=== PATIENT | female | born 1950 | race Caucasian/White ===

== ENCOUNTER → 2016-10-06 | Outpatient (CLI) | payer OTHER ==
[~2016-10-06] MED LIST: GADOBUTROL 10 ML VIAL IVP ONE
== END ==
LOC: FIMAGING 15:18
PROVIDERS: ATTEND Family Medicine
DX: R51 Headache (principal); J32.9 Chronic sinusitis, unspecified; H53.8 Other visual disturbances; R43.8 Other disturbances of smell and taste
CPT/HCPCS: 70553; A9585

== ENCOUNTER → 2016-12-09 | Outpatient (CLI) | payer OTHER | LOC: FIMAGING 12-06 09:43 | DX: M54.2 Cervicalgia (principal); M50.30 Other cervical disc degeneration, unspecified cervical region; M51.34 Other intervertebral disc degeneration, thoracic region ==

== ENCOUNTER 2018-06-04 06:00 | Observation (INO) | payer OTHER ==
[~2018-06-04 06:00] MED LIST changes: -GADOBUTROL 10 ML VIAL IVP ONE; +VANCOMYCIN 1.5 GM in NS 250 ML IV ONE; +VANCOMYCIN PHARMACY TO DOSE MISC ONE
--- NOTE | 2018-06-04 06:10 | PDHPUP ---
History & Physical Update H&P update statement: This history and physical update is based on an assessment of the patient which was completed after admission or registration (within 24 hours), but prior to the surgery/procedure. H&P update: H&P reviewed & patient examined, no change in patient's condition since H&P completed
[2018-06-04] MEDS ORDERED: FAMOTIDINE 20 MG TAB PO ONE (06:23)
[2018-06-04] MEDS ORDERED: ACETAMINOPHEN 325 MG TAB PO ONE (06:23)
[2018-06-04] MEDS ORDERED: DEXAMETHASONE 4 MG/ML VIAL IVP ONE (06:23)
[2018-06-04] MEDS ORDERED: LR 1,000 ML IV ONE (06:26)
[2018-06-04] MEDS ORDERED: BUPIVACAINE/EPI 0.5% 30 ML SDV ONE (06:36)
[2018-06-04] MEDS ORDERED: EPINEPHrine 1 MG/ML INJ ONE (07:13)
[2018-06-04] MEDS ORDERED: PROPOFOL 200 MG/20 ML VIAL ONE (07:19)
[2018-06-04] MEDS ORDERED: ONDANSETRON 4 MG/2 ML VIAL ONE (07:19)
[2018-06-04] MEDS ORDERED: LIDOCAINE 2% 5 ML SDV ONE (07:19)
[2018-06-04] MEDS ORDERED: fentaNYL 100 MCG/2 ML INJ ONE ×2 (07:19→09:12)
[2018-06-04] MEDS ORDERED: DEXAMETHASONE 4 MG/ML VIAL ONE (07:19)
[2018-06-04] MEDS ORDERED: LR 500 ML IV PRN (07:38)
[2018-06-04] MEDS ORDERED: PROMETHAZINE HCL 25 MG/ML INJ IVP PRN ×2 (07:38→13:40)
[2018-06-04] MEDS ORDERED: ONDANSETRON 4 MG/2 ML VIAL IVP PRN ×2 (07:38→13:40)
[2018-06-04] MEDS ORDERED: MEPERIDINE 25 MG/0.5 ML AMP IVP PRN (07:38)
[2018-06-04] MEDS ORDERED: NALOXONE HCL 0.4 MG/ML INJ IVP PRN (07:38)
[2018-06-04] MEDS ORDERED: PHENYLEPHRINE HCL 100 MCG/ML SYR IVP PRN (07:38)
[2018-06-04] MEDS ORDERED: METOCLOPRAMIDE 10 MG/2 ML VIAL IVP PRN ×2 (07:38→13:40)
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
[2018-06-04] MEDS ORDERED: SCOPOLAMINE HYDROBROMIDE 1 MG/3 DAYS PATCH TD SCH (07:45)
[2018-06-04] MEDS: fentaNYL 100 MCG/2 ML INJ IVP PRN ×2 (09:15→09:25)
[2018-06-04] MEDS ORDERED: HYDROmorphONE/DILAUDID 2 MG/ML INJ ONE (09:38)
--- NOTE | 2018-06-04 09:40 | POSTANESTH ---
Post Anesthetic Evaluation Cardiovascular Status: Normal, Stable Respiratory Status: Normal, Stable Level of Consciousness/Mental Status: Can Participate in Eval Pain Control: Inadeq, Add Tx Required Nausea/Vomiting Control: Adequate, Prn Tx Ordered Complications Possibly Related to Anesthesia: None Noted
[2018-06-04] MEDS: HYDROmorphONE/DILAUDID 2 MG/ML INJ IVP PRN ×4 (09:41→10:32)
[2018-06-04] MEDS ORDERED: oxyCODONE IR 5 MG TAB ONE ×3 (09:57→14:03)
[2018-06-04] MEDS ORDERED: oxyCODONE IR 5 MG TAB PO ONE (10:02)
[2018-06-04] MEDS ORDERED: KETOROLAC 30 MG/1 ML SDV IVP ONE (10:04)
[2018-06-04] MEDS ORDERED: KETOROLAC 15 MG/1 ML SDV ONE (10:06)
[2018-06-04] MEDS ORDERED: KETOROLAC 30 MG/1 ML SDV ONE (10:06)
[2018-06-04] MEDS ORDERED: ROPIVACAINE HCL 150 MG/30 ML INJ ONE (11:54)
--- NOTE | 2018-06-04 12:30 | POSTOPPROG ---
Post Op Note Date of Operation: 06/04/18 Surgeon: Toby Mendoza Yardage Control Clerk: christian mendoza PA-C Anesthesiologist: dr. maier Anesthesia: GET(General Endotracheal), Other (Specify) (adductor canal block) Pre-op Diagnosis: right knee ankylosis Post-op Diagnosis: same Indication: right knee pain Procedure: right knee arthroscopy Findings: synovial hypertrophy, PLICA, partial knee arthroplasty in good position Inf/Abcess present in the surg proc area at time of surgery?: No EBL: Minimal
[2018-06-04] MEDS ORDERED: CYCLOBENZAPRINE 10 MG TAB PO PRN (13:40)
[2018-06-04] MEDS ORDERED: POLYETHYLENE GLYCOL 3350 17 GM PKT PO PRN (13:40)
[2018-06-04] MEDS ORDERED: BISACODYL 10 MG SUPP PR PRN (13:40)
[2018-06-04] MEDS ORDERED: MAGNESIUM HYDROXIDE 30 ML UDCUP PO PRN (13:40)
[2018-06-04] MEDS ORDERED: diphenhydrAMINE 25 MG CAP PO PRN (13:40)
[2018-06-04] MEDS ORDERED: DIPHENOXYLATE/ATROPINE LOMOTIL 1 TAB PO PRN (13:40)
[2018-06-04] MEDS ORDERED: ONDANSETRON DISINTEGRATING 4 MG TAB PO PRN (13:40)
[2018-06-04] MEDS ORDERED: PROMETHAZINE HCL 25 MG SUPPR PR PRN (13:40)
[2018-06-04] MEDS ORDERED: TEMAZEPAM 15 MG CAP PO PRN (13:40)
[2018-06-04] MEDS ORDERED: LACTULOSE 20 GM/30 ML UDCUP PO PRN (13:40)
[2018-06-04] MEDS: oxyCODONE IR 5 MG TAB PO PRN ×3 (13:45→19:59)
[2018-06-04] MEDS ORDERED: LR 1,000 ML IV SCH (14:00)
[2018-06-04] MEDS: ACETAMINOPHEN 325 MG TAB PO SCH (18:22)
[2018-06-04] MEDS: FAMOTIDINE 20 MG TAB PO SCH (20:00)
[2018-06-04] MEDS: ASPIRIN 81 MG CHEWABLE TAB PO SCH (20:00)
[2018-06-04] MEDS: SENNOSIDES/DOCUSATE SODIUM TAB PO SCH (20:00)
[2018-06-05] MEDS: ACETAMINOPHEN 325 MG TAB PO SCH ×3 (05:45→12:48)
[2018-06-05 07:48] VITALS: BP 115/64
[2018-06-05] MEDS: SENNOSIDES/DOCUSATE SODIUM TAB PO SCH (08:49)
[2018-06-05] MEDS: FAMOTIDINE 20 MG TAB PO SCH (08:50)
[2018-06-05] MEDS: ASPIRIN 81 MG CHEWABLE TAB PO SCH (08:50)
[2018-06-05] MEDS ORDERED: HYDROCHLOROTHIAZIDE 12.5 MG CAP PO SCH (09:00)
[2018-06-05] MEDS ORDERED: TELMISARTAN 40 MG TAB PO SCH (09:00)
[2018-06-05] MEDS: oxyCODONE IR 5 MG TAB PO PRN ×2 (09:44→12:47)
--- NOTE | 2018-06-05 12:35 | ASDISCHSUM ---
Discharge Information Plan Status:Home with No Needs Medically Cleared to Leave:06/04/2018 Discharge Date:06/04/2018 CM D/C Disposition:Home, Routine, Self-Care ADT D/C Disposition:Home, Routine, Self-Care Projected Discharge Date:06/04/2018 Transportation at D/C:Family Discharge Delay Reason: Follow-Up Date:06/04/2018 Discharge Slot:1 - 8:01 am - 12:00 noon Final Diagnosis:Right knee arthroscopy Placement Information Patient Contact Information Contact Name:ROMELIA Relationship: [address] [place] Phone: City:[place] Alternate Phone: [facility]/Zip Code:[place] [address] Email: Financial Information Financial Class:Medicare Primary Plan Desc:MEDICARE OUTPATIENT Primary Plan Number:[id number] Secondary Plan Desc:[facility] Secondary Plan Number:[id number] Assessment Information LACE LACE Length of stay for Answers: Less than 1 day current admission Acuity / Level of Answers: No Care: Did the patient have an inpatient admission? Comorbidities - select Answers: Any tumor (including all that apply lymphoma or leukemia) # of Emergency department Answers: 0 visits in the last 6 months Score: 2 Date Signed: 06/05/2018 11:03 AM Electronically Signed By:Mikaela Badillo RN [facility] Progress Note CM Note CM Note Notes: Reviewed chart. Pt admitted for a planned right knee arthroscopy. History includes breast cancer. Pt to discharge home independently with family support no identified needs. No IM/MULLER forms signed pt admission less than 24 hrs. Pt to follow up as directed. CM available for any further issues or concerns. Discharge Plan: Home independently with family support Date Signed: 06/05/2018 11:07 AM Electronically Signed By:Mikaela Badillo RN Intervention Information
--- NOTE | 2018-06-05 12:39 | ASMTCMCOM ---
CM Note CM Note Notes: Reviewed chart. Pt admitted for a planned right knee arthroscopy. History includes breast cancer. Pt to discharge home independently with family support no identified needs. No IM/MULLER forms signed pt admission less than 24 hrs. Pt to follow up as directed. CM available for any further issues or concerns. Discharge Plan: Home independently with family support Date Signed: 06/05/2018 11:07 AM Electronically Signed By:Mikaela Badillo RN
--- NOTE | 2018-06-05 12:39 | ASMTLACE ---
LACE Length of stay for Answers: Less than 1 day current admission Acuity / Level of Answers: No Care: Did the patient have an inpatient admission? Comorbidities - select Answers: Any tumor (including all that apply lymphoma or leukemia) # of Emergency department Answers: 0 visits in the last 6 months Score: 2 Date Signed: 06/05/2018 11:03 AM Electronically Signed By:Mikaela Badillo RN
--- NOTE | 2018-06-05 21:41 | SOAPPROG ---
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 Instructed patient that the nerve block will wear off this evening VTE ppx: recommend aspirin 81 mg BID D/c planning: patient may discharge to home today, recommend she return in 2 weeks for follow up with Dr. Zhang. Earlier if she will be out of town due to traveling. Plan: 06/05/18 21:38 Subjective: pain control has improved, denies CP, SOB Objective: Vital Signs Temp Pulse Resp BP Pulse Ox 36.7 C 61 14 115/64 91 L 06/05/18 07:46 06/05/18 07:46 06/05/18 07:46 06/05/18 08:51 06/05/18 07:46 Laboratory Results 06/05/18 04:14 06/04/18 07:00 06/04/18 06/05/18 06/06/18 05:59 05:59 05:59 Intake Total 2600 Output Total 1260 1500 Balance 1340 -1500 RLE: incision dressing is clean and dry, NVI, +pf/df ICD10 Worksheet Patient Problems: Problems Problem Status Onset Osteoarthritis of knee Active Ankylosis, right knee Acute
--- NOTE | 2018-06-07 00:35 | GOP ---
DATE OF OPERATION: 06/04/2018 SURGEON: Bianca Zhang MD ANESTHESIA: General. PREOPERATIVE DIAGNOSIS: Right knee adhesions. POSTOPERATIVE DIAGNOSIS: Right knee adhesions, patellofemoral osteoarthritis, lateral meniscus tear. PROCEDURE PERFORMED: 1. Right knee arthroscopic lysis of adhesions. 2. Patellofemoral chondroplasty. 3. Partial lateral meniscectomy, 20%. 4. Subtotal synovectomy. FINDINGS: INDICATIONS: The patient is a 68-year-old female who underwent a right medial compartment partial knee replacement 3 or 4 years ago. Developed pain that seemed to be scar tissue on the right knee. Discussion was had with the patient regarding risks and benefits, and the patient elected to proceed with operative intervention. No guarantees were given. DESCRIPTION OF PROCEDURE: The patient identified in the preoperative holding area. Her lower extremity was marked. She was then brought back to the operating room. After induction of anesthesia, a nonsterile tourniquet was placed around her upper thigh. She was then prepped and draped in the usual sterile fashion. A time-out was taken confirming patient and laterally of the procedure, allergies, and antibiotic status. I then proceeded to make 2 parapatellar portals. Diagnostic arthroscopy was performed. There were no loose bodies in the suprapatellar pouch, although there was extensive synovitis. On the medial aspect of the joint, there did appear to be some synovium that was hypertrophied, and this appeared an area that was possibly causing her pain. There was also a plica that was quite prominent. In the medial compartment, the partial knee replacement was in good condition, minimal wear. There was a shelf of scar tissue that had formed. The notch was in good condition. Lateral compartment showed a tear of the posterior portion of the lateral meniscus with frayed degeneration of fragments into the joint. The patellofemoral joint showed some cartilage fibrillations. We then proceeded to do a subtotal synovectomy. We removed the adhesions and scar tissue and hypertrophic tissue. We then removed the scar tissue that had formed in the medial compartment over the implant. The lateral meniscus tear was reamed back to a stable brim, and a patellofemoral chondroplasty was then performed. The patient was then awakened and brought to PACU in good condition with a well-perfusing limb. The plan is for the patient to be weightbearing as tolerated. /[id number]/MODL MTDD
== END 2018-06-05 12:53 | disposition home or self-care (01) ==
LOC: FSGY 06:00 → F3E 13:40 → F3N 14:41
PROVIDERS: ADMIT Orthopaedic Surgery; ATTEND Orthopaedic Surgery
DX: M24.661 Ankylosis, right knee (principal); Z96.651 Presence of right artificial knee joint
CPT/HCPCS: 29875; 29881; 73560; 97110; 97116; 97161; G8978; G8979; G8980; J0171; J1100; J1170; J1885; J2405; J2704; J2795; J3010; J3370

== ENCOUNTER 2018-08-25 10:03 | Inpatient (IN) | payer OTHER ==
--- NOTE | 2018-08-25 10:22 | EDPHY ---
H & P Stated Complaint: l flank pain x 3 days microscopic hematuria n/v Time Seen by Provider: 08/25/18 10:18 HPI/ROS: CHIEF COMPLAINT: Left flank pain, vomiting HISTORY OF PRESENT ILLNESS: The patient presents the ED with complaints of severe left flank pain and vomiting. The patient had mild symptoms over the past 2 days. They worsened this morning. She was seen by her primary care provider who performed a urinalysis which demonstrated blood without evidence of an infection. She was sent to the ED for further workup. The patient denies prior history of nephrolithiasis or ureterolithiasis. She denies any antecedent dysuria or fever. She denies any acute neurologic symptoms. She reports her pain is a 10/10. REVIEW OF SYSTEMS: A comprehensive 10 point review of systems is otherwise negative aside from elements mentioned in the history of present illness. Source: Patient Exam Limitations: No limitations - Personal History Current Tetanus Diphtheria and Acellular Pertussis (TDAP): Unsure Tetanus Vaccine Date: < 10 YEARS AGO - Medical/Surgical History Hx Asthma: No Hx Chronic Respiratory Disease: No Hx Diabetes: No Hx Cardiac Disease: No Hx Renal Disease: No Hx Cirrhosis: No Hx Alcoholism: No Hx HIV/AIDS: No Hx Splenectomy or Spleen Trauma: No Other PMH: knee scope - Social History Smoking Status: Never smoked - Physical Exam Exam: General Appearance: Alert, uncomfortable, writhing in pain Eyes: Pupils equal and round no pallor or injection ENT, Mouth: Mucous membranes moist Respiratory: There are no retractions, lungs are clear to auscultation Cardiovascular: Regular rate and rhythm Gastrointestinal: Abdomen is soft and nontender, no masses, bowel sounds normal Back: Left CVA tenderness Neurological: 5/5 strength noted all 4 extremities Skin: Warm and dry, no rashes Musculoskeletal: Neck is supple nontender Extremities: symmetrical, full range of motion Constitutional: Initial Vital Signs Temperature (C) 36.5 C 08/25/18 10:15 Heart Rate 63 08/25/18 10:15 Respiratory Rate 18 08/25/18 10:15 Blood Pressure 215/110 H 08/25/18 10:15 O2 Sat (%) 92 08/25/18 10:15 O2 Delivery Mode Room Air Allergies/Adverse Reactions: moxifloxacin Allergy (Severe, Verified 12/21/12 11:47) Anaphylaxis Penicillins Allergy (Intermediate, Verified 12/21/12 11:47) Hives Sulfa (Sulfonamide Antibiotics) Allergy (Mild, Verified 12/21/12 11:47) GI UPSET diazepam [From Valium] Allergy (Verified 06/03/18 11:56) DECREASED RESPIRATIONS/DIFFICULTY WAKING UP morphine Allergy (Verified 06/03/18 11:56) VERY SEDATION/DECREASES RESPIRATION АННА Allergy (Uncoded 12/06/13 16:10) Home Medications: Medication Instructions Recorded Acetaminophen [Tylenol ES 500 mg 500 mg PO Q6 PRN 08/25/18 (*)] Naproxen Sodium [Aleve 220 MG (*)] 220 mg PO BID 08/25/18 Medical Decision Making - Diagnostics Imaging Results: CT Abdomen and Pelvis Findings: Kidneys, ureters, and bladder: There is moderate left-sided hydronephrosis with dilatation of the left ureter down to the pelvis where there is a distal left ureteral calculus measuring 5 x 4 mm transversely by 6 mm longitudinally about 1.5 cm above the UVJ. No additional ureteral calculi are seen on either side. There is also a 2 mm nonobstructive calculus mid left kidney and 1 mm nonobstructive calculus mid right kidney. No significant renal masses. Perinephric stranding is seen around the left kidney as well as around the distal left ureter at the level of the calculus. The bladder is not well distended. No obvious focal abnormality seen. Lung bases: There is some interstitial dependent edema at the lung bases posteriorly. Liver: Normal. Spleen: Normal. Gallbladder and Bile Ducts: Normal. Pancreas: Normal. Adrenals: Normal. Abdominal Aorta: No aneurysm. Pelvic structures: Normal. Appendix: Normal. Bowel Loops: There are no significantly dilated loops of bowel. Mild hiatal hernia is noted. Soft tissues: Within the lower outer quadrant left breast centrally there is a 3 x 2 cm oval density that could represent a cyst versus solid mass. The soft tissues are otherwise unremarkable over the abdomen and pelvis. Skeletal system: Vertebral body heights are well-maintained. There are no lytic or sclerotic osseous lesions. Moderate to marked degenerative disk disease is noted at L1-L2 and at L5-S1. Impression: 1. Moderate left-sided hydronephrosis secondary to a distal left ureteral calculus measuring 4 x 5 x 6 mm about 1.5 cm above the UVJ.. 2. Tiny nonobstructive calculus midportion of each kidney. 3. Mild hiatal hernia. 4. Oval density lower outer quadrant left breast centrally. This could represent a cyst versus solid mass. Consider correlation with diagnostic mammography and ultrasound as clinically directed. ED Course/Re-evaluation: The patient presents the ED with complaints of acute severe left flank pain. The patient has no prior history of the symptoms. Patient had an IV established. She received IV Dilaudid. After a normal creatinine was verified she received IV Toradol. The patient was taken for CT scan of the abdomen pelvis which demonstrates obstructive uropathy secondary to a distal left ureteral stone. The patient received IV fluid rehydration and antiemetics emergency department. She also received oral Flomax. Patient was re-evaluated [address] scan and continues to have ongoing severe pain. She will require admission to the hospital for pain management and possible urologic consultation. Consultation is made with the hospitalist service. The patient will be admitted by Dr. Holland. Differential Diagnosis: Differential diagnosis considered includes pyelonephritis, nephrolithiasis, abdominal aortic aneurysm, myofascial strain, myocardial infarction - Data Points Laboratory Results: Laboratory Results 08/25/18 10:30 08/25/18 10:30 08/25/18 11:20 Urine Color YELLOW Urine Appearance MODERATELY TURBID Urine pH 7.0 (5.0-7.5) Ur Specific [place] 1.017 (1.002-1.030) Urine Protein NEGATIVE (NEGATIVE) Urine Ketones TRACE H (NEGATIVE) Urine Blood 1+ H (NEGATIVE) Urine Nitrate NEGATIVE (NEGATIVE) Urine Bilirubin NEGATIVE (NEGATIVE) Urine Urobilinogen 0.2 EU EU (0.2-1.0) Ur Leukocyte Esterase NEGATIVE (NEGATIVE) Urine RBC 25-50 /hpf H /hpf (0-3) Urine WBC 1-3 /hpf /hpf (0-3) Ur Epithelial Cells TRACE /lpf /lpf (NONE-1+) Amorphous Sediment PRESENT /hpf /hpf (NONE-1+) Urine Bacteria TRACE /hpf H /hpf (NONE SEEN) Urine Mucus TRACE /lpf /lpf (NONE-1+) Urine Glucose NEGATIVE (NEGATIVE) Medications Given: Acetaminophen (Tylenol) 1,000 mg PO Q8H PRN PRN Reason: Pain, Mild/Fever, Can Take PO Stop: 02/21/19 13:14 Last Admin: 08/26/18 04:28 Dose: 1,000 mg Calcium Carbonate (Tums) 500 mg PO TID PRN PRN Reason: Indigestion Stop: 02/22/19 00:54 Last Admin: 08/26/18 01:21 Dose: 500 mg Sodium Chloride (Ns) 1,000 mls @ 100 mls/hr IV CONT LOVE Stop: 02/21/19 13:14 Last Admin: 08/26/18 05:43 Dose: 1,000 mls Miscellaneous Information (Patch Removal) 1 ea TD DAILY21 LOVE Stop: 02/21/19 20:59 Last Admin: 08/26/18 00:56 Dose: Not Given Oxycodone HCl (Oxycodone Ir) 5 - 10 mg PO Q3H PRN PRN Reason: Pain, Moderate Able to Take PO Stop: 09/04/18 13:14 Last Admin: 08/26/18 04:28 Dose: 5 mg Discontinued Medications Ketorolac Tromethamine (Toradol) 30 mg IVP EDNOW ONE Stop: 08/25/18 10:41 Last Admin: 08/25/18 10:45 Dose: 30 mg Point of Care Test Results: Chemistry 08/25/18 10:36 POC Sodium 143 mEq/L mEq/L (135-145) POC Potassium 3.3 mEq/L mEq/L (3.3-5.0) POC Chloride 105 mEq/L mEq/L (97-110) POC Total CO2 24 mEq/L mEq/L (22-31) POC BUN 18 mg/dL mg/dL (7-23) POC Creatinine 1.1 mg/dL H mg/dL (0.6-1.0) POC Glucose 121 mg/dL H mg/dL (70-100) ISTAT H&H 08/25/18 10:36 POC Hgb 14.6 gm/dL gm/dL (12.6-16.3) POC Hct 43 % % (38-47) Departure - Departure Disposition: [facility] Acute Clinical Impression: Kidney stone on left side Condition: Fair
[2018-08-25] MEDS ORDERED: KETOROLAC 30 MG/1 ML SDV IVP ONE (10:40)
[2018-08-25 10:46] LABS: PLATELET COUNT 254 10^3/uL (150-400)
[2018-08-25] MEDS ORDERED: HYDROCODONE/APAP 5/325 TAB ONE ×2 (11:23→11:27)
[2018-08-25] MEDS ORDERED: TAMSULOSIN HCL 0.4 MG CAP PO ONE (11:23)
[2018-08-25] MEDS ORDERED: ONDANSETRON 4 MG/2 ML VIAL IVP PRN (13:15)
[2018-08-25] MEDS ORDERED: HYDROmorphONE/DILAUDID 2 MG/ML INJ IVP PRN (13:15)
[2018-08-25] MEDS ORDERED: ONDANSETRON DISINTEGRATING 4 MG TAB PO PRN (13:15)
[2018-08-25] MEDS: oxyCODONE IR 5 MG TAB PO PRN ×3 (13:45→21:08)
[2018-08-25] MEDS: ACETAMINOPHEN 500 MG TAB PO PRN (16:00)
[2018-08-25] MEDS ORDERED: oxyCODONE IR 5 MG TAB ONE (16:55)
[2018-08-25] MEDS: NS 1,000 ML IV SCH (21:09)
[2018-08-26] MEDS ORDERED: CALCIUM CARBONATE 500 MG CHEWABLE TAB PO PRN (00:55)
[2018-08-26] MEDS: PATCH REMOVAL 1 EA PATCH TD SCH ×2 (00:56→19:58)
[2018-08-26] MEDS: ACETAMINOPHEN 500 MG TAB PO PRN ×3 (04:28→20:06)
[2018-08-26] MEDS: oxyCODONE IR 5 MG TAB PO PRN (04:28)
[2018-08-26 05:27] LABS: PLATELET COUNT 208 10^3/uL (150-400)
[2018-08-26] MEDS: NS 1,000 ML IV SCH (05:43)
[2018-08-26] MEDS ORDERED: TAMSULOSIN HCL 0.4 MG CAP PO SCH (09:00)
[2018-08-26] MEDS ORDERED: LIDOCAINE 4%/MENTHOL 1% PATCH TD SCH (09:00)
[2018-08-26] MEDS: TAMSULOSIN HCL 0.4 MG CAP PO SCH (09:18)
--- NOTE | 2018-08-26 09:24 | ASMTCMCOM ---
CM Note CM Note Notes: Chart reviewed for discharge planning purposes. 68 year old female admitted via ED with c/o flank pain with @ Nausea and vomiting. Normally independent with . CM to follow for needs. Likely no needs at discharge. Plan: TBD Date Signed: 08/26/2018 09:24 AM Electronically Signed By:Francy Lyles RN
[2018-08-26] MEDS ORDERED: LR 1,000 ML IV ONE (15:20)
--- NOTE | 2018-08-26 16:02 | PDCONSULT ---
Special Agent Note: CC left distal ureteral stone HPI 68F presented to ER last night with Left flank pain. CT scan personally reviewed - left distal ureteral stone, 6mm associated hydro, associated perinepheric stranding. NO fevers or chills. Very sensitive to anesthesia and valium w desaturations. ROS 10 pt RoS performed, as stated in HPI, otherwise neg. PMH/PSH/FH/SH reviewd, no contributory GE AFVSS Gen NAD A&O CV regular Lungs Normal effort Abd soft Ext warm CVA Yes R flank tenderness on exam Labs: Cr 1.4 UA +RBCs. A/P Left ureteral stone, associated hydro and stranding. Left URS, laser, stent. Discussed possibility of inability to treat stone, inability to place stent, and need for PCNT and subsequent procedures. She and her understand and agree to proceed. Consent received.
[2018-08-26] MEDS ORDERED: TRIMETHOPRIM IV ONE (16:30)
[2018-08-26] MEDS ORDERED: SULFAMETHOXAZOLE IV ONE (16:30)
--- NOTE | 2018-08-26 16:49 | HOSPPROG ---
Hospitalist Progress Note Assessment/Plan: # L ureterolithiasis - plan for ureteroscopy today by Dr Dunbar # L breast density on CT - will need mammogram, likely outpatient # ZO - will hydrate overnight and recheck SCr in am; unclear if pre or post- renal Subjective: still with ongoing L sided pain although it is better than before Objective: Vital Signs Temp Pulse Resp BP Pulse Ox 37 C 79 91 H 189/107 H 96 08/26/18 15:46 08/26/18 15:46 08/26/18 15:46 08/26/18 15:46 08/26/18 08:00 Laboratory Results 08/26/18 05:12 08/26/18 05:12 08/25/18 08/26/18 08/27/18 05:59 05:59 05:59 Intake Total 3100 Output Total 1400 1650 Balance 1700 -1650 chart reviewed discussed with Dr Dunbar CT reviewed - Physical Exam Constitutional: no apparent distress, appears nourished Cardiovascular: regular rate and rhythym, no murmur, rub, or gallop Respiratory: no respiratory distress, no rales or rhonchi, clear to auscultation Gastrointestinal: other (soft, mild LLQ TTP; ), No guarding, No rebound ICD10 Worksheet Patient Problems: Problems Problem Status Onset Kidney stone on left side Acute Ankylosis, right knee Acute Osteoarthritis of knee Active
--- NOTE | 2018-08-26 17:18 | PDMN ---
Medical Necessity Medical necessity: Change to IP, as of 08/26/18, per MD & MCG M-320; los >2 mn for ongoing management of L ureterolithiasis w/acute kidney injury; requiring further monitoring, ureteroscopy, IVFs & pain management
[2018-08-26] MEDS ORDERED: LIDOCAINE 2% JELLY 20 ML (UROJECT) ONE (17:55)
[2018-08-26] MEDS ORDERED: IOPAMIDOL (ISOVUE-M 300) 15 ML VIAL ONE (17:56)
[2018-08-26] MEDS ORDERED: OPIUM/BELLADONNA ALKALO SUPP PR ONE (17:56)
[2018-08-26] MEDS ORDERED: fentaNYL 250 MCG/5 ML INJ ONE (17:58)
[2018-08-26] MEDS ORDERED: LABETALOL HCL 5 MG/ML 20 ML MDV ONE (17:58)
[2018-08-26] MEDS ORDERED: PROPOFOL/EMULSION 500 MG/50 ML BOTTLE IV ONE (17:59)
[2018-08-26] MEDS: LABETALOL HCL 5 MG/ML 20 ML MDV IVP PRN ×2 (18:10→18:16)
--- NOTE | 2018-08-26 18:46 | POSTOPPROG ---
Post Op Note Date of Operation: 08/26/18 Surgeon: Rebeca Dunbar Anesthesiologist: Buddy Anesthesia: LMA Pre-op Diagnosis: left ureteral stone, hydronephrosis, hypertension Post-op Diagnosis: same Indication: left ureteral stone, hydronephrosis, hypertension Procedure: cysto, L ureteral stent, intraop fluoro Findings: left ureteral stone Inf/Abcess present in the surg proc area at time of surgery?: No EBL: Minimal Complications: none, pt tolerated procedure well
[2018-08-26] MEDS ORDERED: PHENAZOPYRIDINE HCL 100 MG TAB PO PRN (19:00)
[2018-08-27] MEDS: oxyCODONE IR 5 MG TAB PO PRN (03:34)
[2018-08-27] MEDS: ACETAMINOPHEN 500 MG TAB PO PRN (04:28)
[2018-08-27 05:43] LABS: PLATELET COUNT 207 10^3/uL (150-400)
--- NOTE | 2018-08-27 07:49 | SOAPPROG ---
SOAP Progress Note Assessment/Plan: Assessment: s/p L Ureteral stent for L ureteral stone. HTN I discussed that her HTN is not associated with the stone or procedure yesterday. Plan: She will need BP well controlled prior to her next OR visit to treat the stone. Will need to see PCP for clearance for surgery and see me in my office prior to her surgery. Otherwise OK for DC from urology standpoint. 08/27/18 07:46 Subjective: NAEON BP remains high. Denies any discomfort with the stent or left flank. Objective: Vital Signs Temp Pulse Resp BP Pulse Ox 36.4 C 68 18 173/105 H 92 08/27/18 07:30 08/27/18 07:30 08/27/18 07:30 08/27/18 07:30 08/27/18 07:30 Laboratory Results 08/27/18 04:30 08/27/18 04:30 08/26/18 08/27/18 08/28/18 05:59 05:59 05:59 Intake Total 2120 Output Total 1200 500 Balance 920 -500 Gen NAD A*O CV regular Lungs normal effort Abd soft Ext warm ICD10 Worksheet Patient Problems: Problems Problem Status Onset Kidney stone on left side Acute Osteoarthritis of knee Active Ankylosis, right knee Acute
[2018-08-27] MEDS: TAMSULOSIN HCL 0.4 MG CAP PO SCH (07:52)
[2018-08-27] MEDS ORDERED: amLODIPine BESYLATE 5 MG TAB PO SCH (09:00)
--- NOTE | 2018-08-27 10:58 | GDS ---
[f rep st] DISCHARGE SUMMARY DIAGNOSES: 1. Renal stone status post stent placement. 2. Uncontrolled hypertension. 3. Left breast density seen on CT scan. 4. Acute kidney injury. HOSPITAL COURSE: This is a 68-year-old female presented with left flank pain. Imaging showed a left distal ureteral lithiasis. This did not pass with conservative measures. She was seen by Dr. Fito montgomery who performed a ureteroscopy. She was unable to perform stone extraction given her uncontrolled hypertension. However, a stent was placed. She will need to have the stone definitively managed whe n her blood pressure is better controlled. I have started her on amlodipine 5 mg daily. Her last bl ood pressure was 169/97. She has a followup appointment with her PCP 3 days after discharge. She ma y need to have her amlodipine adjusted at that point. She had previously been on antihypertensives, however, has been off for some time now. Additionally, she had a minor acute kidney injury. Her cre atinine peaked at 1.4, it is down to 1.0 on the day of discharge. She had a left breast density seen on CT scan. She does have a history of breast cancer, I am unsure of the significance of this. Meme s will need to be followed up as an outpatient. She is aware of this. BILLING: I spent more than 30 minutes on the day of discharge coordinating care. /[id number]/MODL
[2018-08-27 11:08] VITALS: BP 169/93
--- NOTE | 2018-08-27 11:08 | ASDISCHSUM ---
Discharge Information Plan Status:Home with No Needs Medically Cleared to Leave: Discharge Date:08/27/2018 11:06 AM CM D/C Disposition:Home, Routine, Self-Care ADT D/C Disposition:Home, Routine, Self-Care Projected Discharge Date:08/27/2018 12:00 AM Transportation at D/C:Family Discharge Delay Reason: Follow-Up Date:08/27/2018 12:00 AM Discharge Slot: Final Diagnosis: Placement Information Patient Contact Information Contact Name:ROMELIA Relationship: Address:[address] Home Phone: City:[place] Alternate Phone: [facility]/Zip Code:[place] [address] Email: Financial Information Financial Class:Medicare Primary Plan Desc:MEDICARE INPATIENT Primary Plan Number:[id number] Secondary Plan Desc:[facility] Secondary Plan Number:[id number] Assessment Information LACE LACE Length of stay for Answers: Less than 1 day current admission Acuity / Level of Answers: Yes Care: Did the patient have an inpatient admission? Comorbidities - select Answers: Opioid dependence all that apply / Chronic pain # of Emergency department Answers: 1-2 visits in the last 6 months Score: 8 Date Signed: 08/27/2018 11:07 AM Electronically Signed By:ANIL Lockett [facility] Progress Note CM Note CM Note Notes: Chart reviewed for discharge planning purposes. 68 year old female admitted via ED with c/o flank pain with @ Nausea and vomiting. Normally independent with . CM to follow for needs. Likely no needs at discharge. Plan: TBD Date Signed: 08/26/2018 09:24 AM Electronically Signed By:Francy Lyles RN Case Management Discharge Plan Note Case Management Discharge Discharge Order Complete? Answers: Yes Patient to Obtain Answers: via Family Medications Transportation Arranged Answers: Family/Friends Discharge Comments Notes: Pt is getting discharged independently with family support and outpatient follow-up. No CM needs identified at this time. Family to transport. Date Signed: 08/27/2018 11:06 AM Electronically Signed By:ANIL Lockett Intervention Information Intervention Type:*RENZO-Signed Date of Service:08/26/2018 11:21 AM Patient Type:Observation Staff Member:Grace Henriquez Hours: Discipline: Severity: Comment:
--- NOTE | 2018-08-27 13:14 | GOP ---
[f rep st] OPERATIVE REPORT DATE OF OPERATION: 08/26/2018 SURGEON: Rebeca Dunbar MD ANESTHESIOLOGIST: Dr. Goodwin. PREOPERATIVE DIAGNOSIS: Left ureteral stone obstruction and hypertension. POSTOPERATIVE DIAGNOSIS: Left ureteral stone obstruction and hypertension. PROCEDURE PERFORMED: Cystoscopy, left stent placement and intraoperative fluoroscopy. FINDINGS: left ureteral stone SPECIMENS: None. The patient tolerated the procedure well. ESTIMATED BLOOD LOSS: Minimal. INDICATIONS: The patient presented to the ER last night and was found to have a left distal ureteral stone with significant perinephric stranding and hydroureter. Her blood pressure had been very elevated all day despite medical management. However, due to the stranding of the kidney and the discomfort, a stent was indicated. We also discussed left percutaneous nephrostomy tube placement with Anesthesia and Anesthesia felt that a stent would be appropriate and antihypertensives were given prior to the procedure and her blood pressure did drop down to normal for the procedure. The rationale, risks and benefits including bleeding, infection, discomfort, need for subsequent procedure, possible inability to place the stent, and the need for subsequent procedures for treatment of the stone were discussed with the patient and her and they agreed to proceed. DESCRIPTION OF PROCEDURE: She was taken back to the cystoscopy suite, placed on the cystoscopy table in supine position. General anesthesia induced without complication. Time-out performed. Core measures satisfied including placement of a Christopher Hugger, SCDs and administration of Bactrim IV antibiotics. She was brought to the end of the table, placed in a dorsal lithotomy position. All pressure points padded. Genitalia draped and prepped in the standard surgical fashion with Betadine. A rigid cystoscope easily cannulated the urethral meatus and was advanced atraumatically into the bladder. Pereira-cystoscopy performed and no lesions, cellules, trabeculations or abnormalities. Left ureteral orifice identified. This wire was able to be advanced up into the left collecting system with fluoroscopic guidance, then a 6-Gambian multivariable stent was attempted to be placed, but where the stone was present , it would not go past the stone, so I switched over to a 4.7-Gambian multivariable stent and initially there was resistance at the level where the stone was in the ureter, but eventually the stent was able to pass across it and I was able to place a multivariable 4.7-Gambian stent with a nice curl in the renal pelvis and a nice curl in the bladder. Her bladder was then emptied. The procedure was considered complete. Lidocaine jelly placed per urethra and she was awoken from anesthesia and transferred to PACU in good condition. We will treat her stone once her BP becomes better controlled as an outpatient. /[id number]/MODL MTDD
== END 2018-08-27 11:06 | disposition home or self-care (01) | DRG 661 ==
LOC: F1N 11:55 → OBSVTOIN 08-26 16:47
PROVIDERS: ADMIT Internal Medicine; ATTEND Student in an Organized Health Care Education/Training Program
PROC: 0T778DZ Dilation of Left Ureter with Intraluminal Device, Via Natural or Artificial Opening Endoscopic (ICD-10-PCS; principal; 2018-08-26 13:15)
DX: N13.2 Hydronephrosis with renal and ureteral calculous obstruction (principal); I10 Essential (primary) hypertension; N17.9 Acute kidney failure, unspecified; R93.89 Abnormal findings on diagnostic imaging of other specified body structures
CPT/HCPCS: 82435-PO; 82565-PO; 82947-PO; 84132-PO; 84295-PO; 84520-PO; 85014-ER; 96374; C1758; C2625; G0378; J1885; J2704; J3010; Q9967

== ENCOUNTER 2018-09-09 05:56 | Day surgery (SDC) | payer OTHER ==
[2018-09-09] MEDS ORDERED: IOPAMIDOL (ISOVUE-300) 150 ML BTL ONE (07:02)
[2018-09-09] MEDS ORDERED: LIDOCAINE 2% JELLY 20 ML (UROJECT) ONE (07:02)
[2018-09-09] MEDS ORDERED: OPIUM/BELLADONNA ALKALO SUPP PR ONE (07:03)
[2018-09-09] MEDS ORDERED: IOPAMIDOL (ISOVUE-M 300) 15 ML VIAL ONE (07:04)
--- NOTE | 2018-09-09 07:24 | PDHPUP ---
History & Physical Update H&P update statement: This history and physical update is based on an assessment of the patient which was completed after admission or registration (within 24 hours), but prior to the surgery/procedure. H&P update: H&P reviewed & patient examined, changes noted (BP now well controlled. Cleared for surgery by PCP. LURS, laser, stent. )
[2018-09-09] MEDS ORDERED: OPIUM/BELLADONNA ALKALO SUPP PR PRN (07:25)
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
[2018-09-09] MEDS ORDERED: D5W IV ONE ×2 (07:30)
[2018-09-09] MEDS ORDERED: TMP IV ONE ×2 (07:30)
[2018-09-09] MEDS ORDERED: SULFAMETHOX IV ONE ×2 (07:30)
[2018-09-09] MEDS ORDERED: LIDOCAINE 2% 100 MG/5 ML SYR ONE (07:36)
[2018-09-09] MEDS ORDERED: DEXAMETHASONE 4 MG/ML VIAL ONE ×2 (07:36)
[2018-09-09] MEDS ORDERED: PROPOFOL/EMULSION 500 MG/50 ML BOTTLE IV ONE (07:36)
[2018-09-09] MEDS ORDERED: fentaNYL 100 MCG/2 ML INJ ONE (07:36)
[2018-09-09] MEDS ORDERED: LIDOCAINE 2% JELLY 6 ML TOPICAL SYR ONE (07:37)
[2018-09-09] MEDS ORDERED: ONDANSETRON 4 MG/2 ML VIAL ONE (07:37)
[2018-09-09] MEDS ORDERED: SEVOFLURANE 250 ML BOTTLE IH ONE (07:56)
[2018-09-09] MEDS ORDERED: PHENYLEPHRINE HCL 100 MCG/ML SYR IVP PRN (08:35)
[2018-09-09] MEDS ORDERED: LABETALOL HCL 5 MG/ML 20 ML MDV IVP PRN (08:35)
[2018-09-09] MEDS ORDERED: DEXAMETHASONE 4 MG/ML VIAL IVP PRN (08:35)
[2018-09-09] MEDS ORDERED: fentaNYL 100 MCG/2 ML INJ IVP PRN (08:35)
[2018-09-09] MEDS ORDERED: ACETAMINOPHEN 500 MG TAB PO PRN (08:35)
[2018-09-09] MEDS ORDERED: ALBUTEROL 3 ML DEYVIAL IH PRN (08:35)
[2018-09-09] MEDS ORDERED: METOCLOPRAMIDE 10 MG/2 ML VIAL IVP PRN (08:35)
[2018-09-09] MEDS ORDERED: MEPERIDINE 25 MG/0.5 ML AMP IVP PRN (08:35)
[2018-09-09] MEDS ORDERED: PROMETHAZINE HCL 25 MG/ML INJ IVP PRN (08:35)
[2018-09-09] MEDS ORDERED: LR 500 ML IV PRN (08:35)
[2018-09-09] MEDS ORDERED: oxyCODONE IR 5 MG TAB PO PRN (08:35)
[2018-09-09] MEDS ORDERED: NALOXONE HCL 0.4 MG/ML INJ IVP PRN (08:35)
[2018-09-09] MEDS ORDERED: ONDANSETRON 4 MG/2 ML VIAL IVP PRN (08:35)
[2018-09-09] MEDS ORDERED: KETOROLAC 30 MG/1 ML SDV ONE (08:37)
--- NOTE | 2018-09-09 08:53 | POSTOPPROG ---
Post Op Note Date of Operation: 09/09/18 Surgeon: Rebeca Dunbar Anesthesiologist: Michael Anesthesia: GET(General Endotracheal) Pre-op Diagnosis: left ureteral stone, left renal stone Post-op Diagnosis: left ureteral stone, intraparenchymal renal stone Indication: obs left ureteral stone Procedure: cysto,LURS,laser,stent,bsk ext stone, RGP, fuoro Findings: left ureteral stone, impacted, no real stone to remove Inf/Abcess present in the surg proc area at time of surgery?: No EBL: Minimal Complications: none, pt tolerated procedure well Specimen(s): stone
--- NOTE | 2018-09-09 09:29 | GOP ---
[f rep st] OPERATIVE REPORT DATE OF OPERATION: SURGEON: Rebeca Dunbar MD ANESTHESIOLOGIST: Dr. Rodriguez. PREOPERATIVE DIAGNOSIS: Left ureteral stone, hydronephrosis, left renal stone. POSTOPERATIVE DIAGNOSIS: Left ureteral stone, obstructing, with hydronephrosis , left intraparenchymal renal stone. PROCEDURE PERFORMED: Cystoscopy, left ureteroscopy, laser lithotripsy, stent, basket extraction of stone, retrograde pyelogram, intraoperative fluoroscopy. FINDINGS: Left ureteral stone that was impacted in the distal ureter. Nephroscopy demonstrated no basketable removable renal stones, but there were some small intraparenchymal calcifications that I lasered and dislodged but they were, again, too small to basket and remove and would pass on their own. SPECIMENS: Stone. ESTIMATED BLOOD LOSS: Minimal. INDICATIONS: The patient presented to the ER last week with left flank pain secondary to a sizable obstructing left distal ureteral stone with hydronephrosis. Her blood pressure was poorly controlled and Anesthesia recommended only a stent. Thus she underwent just a stent placement until her blood pressure could be better controlled as an outpatient, so she presents today for treatment of her left ureteral stone. The rationale, risks, and benefits including bleeding, infection, pain, injury to the urethra, the bladder , the left ureter, inability to gain access to the stone, need for another stent , and need for additional procedures, which may include left percutaneous nephrostomy tube were all discussed with the patient and the patient agreed to proceed. DESCRIPTION OF PROCEDURE: The patient was taken back to the cystoscopy suite, placed on the cystoscopy table in supine position. General anesthesia induced without complication. Time-out performed. Core measures satisfied, including placement of a Christopher Hugger, SCDs and administration of IV Bactrim antibiotics. She was brought to the end of the table, placed in dorsal lithotomy position. All pressure points padded. Genitalia prepped and draped in the standard surgical fashion with Betadine. Rigid cystoscope easily cannulated the urethral meatus and was advanced atraumatically into the bladder. A grasper was then used to externalize the distal end of the stent. I attempted to put a wire through the stent and it was a 4.7-Argentine stent and I was unable to advance this wire, so I then I advanced a 5-Argentine open-ended catheter up to the level of the left ureteral orifice with cystoscopic guidance and then placed two 0.035 Glidewires through the 5-Argentine open-ended catheter and then I was able to remove the stent intact. I had [address] I then placed a Bales catheter, 12-Argentine, for decompression of the bladder and then advanced a rigid ureteroscope into the left ureter. I encountered the distal stone, advanced the laser to the level of the stone, lasered the stone into basketable and dust fragments. All fragments were removed. What remained was just fine dust that would pass on its own. I looked all the way up the left ureter as far as my rigid ureteroscope could advance and there were no other stones, just a hydronephrotic system. I had a safety wire and a working wire still up so with these [address], I removed the ureteroscope and then removed the Bales catheter and then advanced a ureteral access sheath with fluoroscopic guidance into the left collecting system over the working wire, and my safety wire was still up. I then advanced a flexible ureteroscope into the left collecting system. I did not find a stone to basket, but what I did see were some intraparenchymal calcifications that were into the papilla. I did take the laser, tapped these areas gently and dislodged the small stone fragments. One was deeper and I did not go after that stone, but it was again very small, but I did laser part of it. So at this point, I felt there were no other stones in the left collecting system, was dilated and hydronephrotic. I had my safety wire still up, so I removed the sheath and the scope together, examining the wall of the ureter. I did a retrograde pyelogram before I removed the sheath, then I removed the sheath and the scope together, examining the wall of the ureter. The retrograde pyelogram verified that I had gotten into all the calices to examine in the kidney and the ureter was in good shape up to where the stone was impacted. It was very edematous down in this area where the stone had been lodged, but otherwise the ureter was just hydronephrotic. The safety wire was still up and I advanced a 6-Argentine multivariable stent with fluoroscopic and cystoscopic guidance with a nice curl in the renal pelvis and a nice curl in the bladder. Stones were present in the bladder. I removed these, sent them for pathology, emptied her bladder, placed lidocaine jelly, placed belladonna and opium suppository. At this point, I considered the procedure complete. She was awoken from anesthesia and transferred to PACU in good condition to get her stent removed next week in my office. COMPLICATIONS: None. /[id number]/MODL MTDD
[2018-09-09 10:34] VITALS: BP 104/68
--- NOTE | 2018-09-09 10:44 | POSTANESTH ---
Post Anesthetic Evaluation Cardiovascular Status: Normal, Stable Respiratory Status: Normal, Stable Level of Consciousness/Mental Status: Can Participate in Eval Pain Control: Adequate, Prn Tx Ordered Nausea/Vomiting Control: Adequate, Prn Tx Ordered Complications Possibly Related to Anesthesia: None Noted
== END 2018-09-09 10:42 | disposition home or self-care (01) ==
LOC: FSGY 05:56
PROVIDERS: ATTEND Urology
PROC: BT17YZZ Fluoroscopy of Left Ureter using Other Contrast (ICD-10-PCS; 2018-09-09)
PROC: 0T778DZ Dilation of Left Ureter with Intraluminal Device, Via Natural or Artificial Opening Endoscopic (ICD-10-PCS; principal; 2018-09-09 07:30)
PROC: 0TP980Z Removal of Drainage Device from Ureter, Via Natural or Artificial Opening Endoscopic (ICD-10-PCS; principal; 2018-09-09 07:30)
PROC: 0TF48ZZ Fragmentation in Left Kidney Pelvis, Via Natural or Artificial Opening Endoscopic (ICD-10-PCS; principal; 2018-09-09 07:30)
PROC: 0TF78ZZ Fragmentation in Left Ureter, Via Natural or Artificial Opening Endoscopic (ICD-10-PCS; principal; 2018-09-09 07:30)
DX: N13.2 Hydronephrosis with renal and ureteral calculous obstruction (principal); I10 Essential (primary) hypertension; Z87.442 Personal history of urinary calculi; Z85.3 Personal history of malignant neoplasm of breast; Z96.651 Presence of right artificial knee joint; Z88.0 Allergy status to penicillin; Z88.2 Allergy status to sulfonamides
CPT/HCPCS: 52356; 76000; C1758; C1769; C1894; 82365-90; C2625; J1100; J1885; J2001; J2405; J2704; J3010; Q9967

== ENCOUNTER → 2018-10-21 | Outpatient (CLI) | payer OTHER | LOC: FIMAGING 09:20 | PROVIDERS: ATTEND Urology | DX: N20.0 Calculus of kidney (principal); R31.9 Hematuria, unspecified; K76.0 Fatty (change of) liver, not elsewhere classified; K44.9 Diaphragmatic hernia without obstruction or gangrene; R91.8 Other nonspecific abnormal finding of lung field; E27.9 Disorder of adrenal gland, unspecified; M51.35 Other intervertebral disc degeneration, thoracolumbar region; M79.89 Other specified soft tissue disorders ==